=== PATIENT | female | born 1955 | race Caucasian/White ===

== ENCOUNTER 2017-01-21 09:22 | Outpatient (CLI) | payer BC ==
[~2017-01-21 09:22] MED LIST: 5-HTP100 MG ORAL; ADDERAL20 MG ORAL; BENADRYL25 M3 PO; BIOTIN5 MG PO; CALCIUM500 M3 PO; CELEXA20 MG ORAL; MELATONIN5 M5 ORAL; METHADONE HCL5 MG PO; OMEGA-31000 M1 PO; PROVENTIL2 MG ORAL; PROZAC10 MG ORAL; SPIRIVA18 MCG INH; TOPAMAX25 MG ORAL; ZESTRIL10 M1 ORAL; magnesium PO; vit d PO
--- NOTE | 2017-01-21 10:15 | GI Progress Note ---
Assessment/Plan Problems: (1) Colon polyp ICD Codes: K63.5 - Colon polyp SNOMED: 89411895 (2) HTN (hypertension) ICD Codes: I10 - HTN (hypertension) SNOMED: 70738240 (3) Internal hemorrhoids ICD Codes: K64.8 - Internal hemorrhoids SNOMED: 81099820 Status: stable Status Narrative Seen with Dr. Hopkins. Assessment/Plan Endoscopy Procedure Note Indication for Procedure: screening Procedures Performed: colonoscopy Operative Findings/Diagnosis: 5 polyps ORTEGA HOPKINS - Jun 15, 2014 10:22 colonoscopy to be scheduled pending prior authorization - CLD and prep instructions given and acknowledge by patient. RTC prn Subjective Gastrointestinal/Abdominal: Reports: no symptoms Objective T 98.9 BP 128/78 P 72 96 RA WT 184 denies weight loss General Appearance: no apparent distress, alert Cardiovascular: normal rate Respiratory/Chest: normal breath sounds, no respiratory distress Abdominal Exam: normal bowel sounds, non tender, soft Extremities: normal range of motion Thi King N.P. Jan 21, 2017 10:15
== END 2017-01-21 10:00 | disposition home or self-care (01) ==
LOC: PAN 09:22
DX: K63.5 Polyp of colon (principal); I10 Essential (primary) hypertension; K64.8 Other hemorrhoids
CPT/HCPCS: 99211

== ENCOUNTER 2017-04-30 06:40 | Day surgery (SDC) | payer BC ==
[2017-04-30] VITALS (10 sets, daily range): BP systolic 121–135; BP diastolic 65–80
[~2017-04-30] VITALS: Ht 175.3 cm; Wt 86.6 kg
--- NOTE | 2017-04-30 07:28 | Anethesia Preoperative Eval ---
Anesthesia Pre-op PMH/ROS General Date of Evaluation: Apr 30, 2017 Time of Evaluation: 07:26 Anesthesiologist: aaron ASA Score: ASA 3 Mallampati Score Class I : Soft palate, uvula, fauces, pillars visible Class II: Soft palate, uvula, fauces visible Class III: Soft palate, base of uvula visible Class IV: Only hard plate visible Mallampati Classification: Class II Surgeon: matt Diagnosis: colon polyps, anemia Surgical Procedure: colonoscopy Anesthesia History: none Social History: smoking - former smoker Family History: no anesthesia problems Allergies: Coded Allergies: ADHESIVE TAPE (Verified Allergy, Intermediate, 04/30/17) raw skin PENICILLINS (Unverified Allergy, Intermediate, Hives, 05/10/14) SWOLLEN Medications: see eMAR Past Medical History Cardiovascular: Reports: HTN Gastrointestinal/Genitourinary: Reports: other - hemorrhoids,colon polyps, Neurologic/Psychiatric: Reports: depression/anxiety Hematology/Immune: Reports: anemia Musculoskeletal/Integumentary: Reports: other - back pain Other: obesity Anesthesia Pre-op Phys. Exam Physician Exam Last Vital Signs Date Time Temp Pulse Resp B/P (MAP) Pulse Ox O2 Delivery O2 Flow Rate FiO2 04/30/17 07:26 97.1 64 17 124/65 96 Room Air Constitutional: NAD Neurologic: CN 2-12 intact Cardiovascular: RRR Respiratory: CTA Gastrointestinal: S/NT/ND Airway Exam Mallampati Score: Class II MO: full Neck: supple TMD: 2fb ROM: full Teeth: intact Anesthesia Pre-op A/P Studies Pre-op Studies: EKG - sinus bradycardia Risk Assessment & Plan Assessment: asa3 Plan: mac Status Change Before Surgery: No Pre-Antibiotics Drug: CELENA Fuentes Apr 30, 2017 07:28
[2017-04-30] MEDS ORDERED: BUSPAR10 MG ORAL (07:30)
[2017-04-30] MEDS ORDERED: Lidocaine 1% MPF 10mg/ml 5ml ONE (08:30)
[2017-04-30] MEDS ORDERED: Propofol 200mg/20ml IV ONE (08:30)
[2017-04-30] MEDS ORDERED: fentaNYL 100 mcg/2 mL IV PRN (08:45)
[2017-04-30] MEDS ORDERED: Midazolam 2mg/2ml Inj IVP PRN (08:45)
[2017-04-30] MEDS ORDERED: DiphenhydrAMINE 50mg/ml Inj IVP PRN (08:45)
[2017-04-30] MEDS ORDERED: Atropine Inj 1mg/10ml Syr IV PRN (08:45)
--- NOTE | 2017-04-30 08:52 | Short Stay Surgery H&P ---
History of Present Illness History of Present Illness Chief Complaint screening colonoscopy HPI Yvonne Riley is a 61 year old female who was admitted on for Colon Polyps Patient History Allergies: Coded Allergies: ADHESIVE TAPE (Verified Allergy, Intermediate, 04/30/17) raw skin PENICILLINS (Unverified Allergy, Intermediate, Hives, 05/10/14) SWOLLEN PAST MEDICAL HISTORY: (1) Depression (2) External hemorrhoid (3) Colon polyp (4) HTN (hypertension) (5) Internal hemorrhoids Past Surgeries: Social History: Medication History Scheduled Buspirone Hcl* (Buspar*), 15 MG ORAL THREE TIMES A DAY, (Reported) Diphenhydramine HCl (Benadryl), 25 MG PO PRN, (Reported) Fluoxetine Hcl* (Prozac*), 10 MG ORAL DAILY, (Reported) Lisinopril* (Zestril*), 10 MG ORAL DAILY, (Reported) Discontinued Medications Melatonin (Melatonin), 5 MG ORAL BEDTIME PRN for Insomnia, (Reported) Discontinued Reason: Pt stopped taking med Review of Systems Cardiovascular: Reports: no symptoms Respiratory: Reports: no symptoms Skeletal: Reports: no symptoms Gastrointestinal: Reports: no symptoms Genitourinary: Reports: no symptoms Neurologic: Reports: no symptoms Endocrine: Reports: no symptoms Hematologic: Reports: no symptoms Physical Exam Vital Signs Last Vital Signs Date Time Temp Pulse Resp B/P (MAP) Pulse Ox O2 Delivery O2 Flow Rate FiO2 04/30/17 07:26 97.1 64 17 124/65 96 Room Air Skin: normal HENT: normal Heart: normal Lungs: normal Abdomen: normal Extremities: normal Plan Plan of Care colonoscopy Final Diagnosis: Attestation Are the patient's medical conditions optimized for surgery? Attestation Response: yes ORTEGA ROGERS Apr 30, 2017 08:52
--- NOTE | 2017-04-30 08:53 | Pre-Procedure Note/Attestation ---
Pre-Procedure Note/Attestation Complete Prior to Procedure Planned Procedure: not applicable Procedure Narrative: colonoscopy Indications for Procedure Pre-Operative Diagnosis: screening Attestation I attest that I discussed the nature of the procedure; its benefits; risks and complications; and alternatives (and the risks and benefits of such alternatives ), prior to the procedure, with the patient (or the patient's legal outbound telemarketing representative). I attest that, if there was a reasonable possibility of needing a blood transfusion, the patient (or the patient's legal outbound telemarketing representative) was given the [facility] standardized written summary, pursuant to the [place] Blood Safety Act ([place] Health and Safety Code # 1645, as amended). I attest that I re-evaluated the patient just prior to the surgery and that there has been no change in the patient's H&P, except as documented below: ORTEGA ROGERS Apr 30, 2017 08:53
--- NOTE | 2017-04-30 09:16 | Endoscopy Procedure Note ---
Endoscopy Procedure Note Indication for Procedure: screening Procedures Performed: colonoscopy Operative Findings/Diagnosis: multiple polyps Specimen: yes Pt Tolerated Procedure Well: Yes Estimated Blood Loss: none Anesthesiologist: latonya Anesthesia: MAC Implant(s) used?: No 50 yrs or older w/o bx or poly: No 10yrs. F/U not recommended: Yes If not recommended, why?: Above average risk 10 yrs. F/U needed: Yes 18 years or older w/prev. colo: Yes <3yrs. since last colonoscopy: No ORTEGA ROGERS Apr 30, 2017 09:16
--- NOTE | 2017-04-30 14:32 | Immediate Post-Op Evaluation ---
Immediate Post-Op Evalulation Immediate Post-Op Evalulation Procedure: colonoscopy Date of Evaluation: Apr 30, 2017 Time of Evaluation: 09:39 IV Fluids: 300ml lr Blood Products: none Estimated Blood Loss: negligible Blood Pressure Systolic: 133 Blood Pressure Diastolic: 78 Pulse Rate: 66 Respiratory Rate: 18 O2 Sat by Pulse Oximetry: 100 Temperature (Fahrenheit): 97.3 Pain Score (1-10): 0 Nausea: No Vomiting: No Complications none Patient Status: awake, reacts, patent Hydration Status: adequate Drug: CELENA Fuentes Apr 30, 2017 14:32
--- NOTE | 2017-04-30 14:34 | 48 Hour Post Anesthesia Eval ---
Post Anesthesia Evaluation Procedure: colonoscopy Date of Evaluation: Apr 30, 2017 Time of Evaluation: 09:41 Blood Pressure Systolic: 135 0: 80 Pulse Rate: 74 Respiratory Rate: 18 Temperature (Fahrenheit): 97.3 O2 Sat by Pulse Oximetry: 100 Airway: patent Nausea: No Vomiting: No Pain Intensity: 0 Hydration Status: adequate Cardiopulmonary Status: stable Mental Status/LOC: patient returned to baseline Post-Anesthesia Complications: none Follow-up care needed: N/A CELENA SIMON Apr 30, 2017 14:34
--- NOTE | 2017-04-30 14:45 | Procedure Note ---
DATE OF PROCEDURE: 04/30/2017 SURGEON: Low Hopkins M.D. PROCEDURE: Colonoscopy with biopsy. ANESTHESIOLOGIST: Arlene Chisholm M.D. INSTRUMENT: Olympus adult flexible colonoscope. INDICATION: History of colonic polyps, screening colonoscopy. REASON FOR PROCEDURE: The procedure, risks, benefits, and possible consequences, including hemorrhage, aspiration, perforation and infection, and alternative treatments, were explained to the patient/legal guardian by Dr. Low Hopkins and the patient/legal guardian understood and accepted these risks. DESCRIPTION OF PROCEDURE: After informed consent was obtained and the patient was adequately sedated, first rectal exam was performed, which was positive for external and internal hemorrhoids. Then, the scope was advanced from rectum into the cecum documented by appendiceal orifice, ileocecal valve, and right upper quadrant palpation. Quality of prep was very good. The patient had numerous polyps in the rectosigmoid area, I would say more than 20 of them. We biopsied about 7 or 8 of them, they were all hyperplastic looking polyps. The rest of the examination grossly within normal limit. Retroflexion of rectum showed evidence of internal hemorrhoids. SUMMARY OF FINDINGS: 1. Internal and external hemorrhoids. 2. Numerous hyperplastic looking polyps in the rectosigmoid area. PLAN: Given the criteria for serrated adenoma syndrome, given the patient has more than 20 hyperplastic looking polyps, the patient qualifies for that. Recommend repeat colonoscopy in one year. Low Hopkins M.D. DR: RODNEY JOB#: [id number] CC:
--- NOTE | 2017-05-09 11:38 | Cardiology Report ---
APPROVED REPORT EKG Measurement Heart [id number] [id number] Sinus bradycardia Otherwise normal ECG
== END 2017-04-30 10:30 | disposition home or self-care (01) ==
LOC: GAS 06:40
DX: Z12.11 Encounter for screening for malignant neoplasm of colon (principal); K64.4 Residual hemorrhoidal skin tags; K64.8 Other hemorrhoids; K63.5 Polyp of colon; F32.9 Major depressive disorder, single episode, unspecified; I10 Essential (primary) hypertension; Z88.0 Allergy status to penicillin; Z91.040 Latex allergy status; Z87.891 Personal history of nicotine dependence; R00.1 Bradycardia, unspecified
CPT/HCPCS: 45380; 93005; J2704; 94003; 94150

== ENCOUNTER 2017-05-13 09:23 | Outpatient (CLI) | payer BC ==
[~2017-05-13 09:23] MED LIST changes: +BUSPAR10 MG ORAL
[2017-05-13 09:29] VITALS: BP 131/77
--- NOTE | 2017-05-13 11:21 | GI Progress Note ---
Assessment/Plan Problems: (1) Colon polyp ICD Codes: K63.5 - Colon polyp SNOMED: 46035676 (2) External hemorrhoid ICD Codes: K64.8 - External hemorrhoid SNOMED: 48115680 (3) Internal hemorrhoids ICD Codes: K64.8 - Internal hemorrhoids SNOMED: 17006867 Status: stable Status Narrative Seen with Dr. Hopkins. Assessment/Plan colonoscopy SUMMARY OF FINDINGS reviewed with patient: 1. Internal and external hemorrhoids. 2. Numerous hyperplastic looking polyps in the rectosigmoid area. PLAN: Given the criteria for serrated adenoma syndrome, given the patient has more than 20 hyperplastic looking polyps, recommend repeat colonoscopy in one year. RTC PRN Subjective Gastrointestinal/Abdominal: Reports: no symptoms Objective Last 24 Hour Vital Signs Date Time Temp Pulse Resp B/P (MAP) Pulse Ox O2 Delivery O2 Flow Rate FiO2 05/13/17 09:29 91 16 131/77 98 General Appearance: WD/WN, no apparent distress, alert Cardiovascular: normal rate Respiratory/Chest: normal breath sounds, no respiratory distress Abdominal Exam: normal bowel sounds, non tender, soft Extremities: normal range of motion, non-tender Thi King N.P. May 13, 2017 11:21
== END 2017-05-13 09:58 | disposition home or self-care (01) ==
LOC: PAN 09:23
DX: K63.5 Polyp of colon (principal); K64.8 Other hemorrhoids
CPT/HCPCS: 99212

== ENCOUNTER 2018-09-30 05:46 | Day surgery (SDC) | payer BC ==
[2018-09-30] VITALS (8 sets, daily range): BP systolic 100–129; BP diastolic 63–77
[~2018-09-30] VITALS: Ht 171.4 cm; Wt 80.3 kg
[2018-09-30] MEDS ORDERED: LR 1000ml 1,000 ML IVLG SCH (07:18)
--- NOTE | 2018-09-30 07:18 | Anethesia Preoperative Eval ---
Anesthesia Pre-op PMH/ROS General Date of Evaluation: September 30, 2018 Anesthesiologist: Rajesh ASA Score: ASA 2 Mallampati Score Class I : Soft palate, uvula, fauces, pillars visible Class II: Soft palate, uvula, fauces visible Class III: Soft palate, base of uvula visible Class IV: Only hard plate visible Mallampati Classification: Class II Surgeon: Kellie Diagnosis: Colon polyps Surgical Procedure: Colonoscopy Anesthesia History: none Social History: smoking - ex smoker Family History: no anesthesia problems Allergies: Coded Allergies: ADHESIVE TAPE (Verified Allergy, Intermediate, 04/30/17) raw skin PENICILLINS (Unverified Allergy, Intermediate, Hives, 09/30/18) SWOLLEN Medications: see eMAR Patient NPO?: Yes NPO Date: Sep 29, 2018 NPO Time: 22:00 Past Medical History Cardiovascular: Reports: HTN; Denies: CAD, [place], valve dz, arrhythmia, other Pulmonary: Denies: asthma, COPD, RAFAEL, other Gastrointestinal/Genitourinary: Denies: GERD, CRI, ESRD, other Neurologic/Psychiatric: Reports: depression/anxiety; Denies: dementia, CVA, TIA, other Endocrine: Denies: DM, hypothyroidism, steroids, other HEENT: Denies: cataract (L), cataract (R), glaucoma, TE-MOAK (L), TE-MOAK (R), other Hematology/Immune: Reports: anemia - chronic; Denies: DVT, bleeding disorder, other Musculoskeletal/Integumentary: Denies: OA, RA, DJD, DDD, edema, other Other: obesity PSxH Narrative: Denies Anesthesia Pre-op Phys. Exam Physician Exam Last Vital Signs Date Time Temp Pulse Resp B/P (MAP) Pulse Ox O2 Delivery O2 Flow Rate FiO2 09/30/18 06:25 97.1 76 18 109/71 95 Room Air Constitutional: NAD Cardiovascular: RRR Respiratory: CTA Airway Exam Mallampati Score: Class II MO: full ROM: full Anesthesia Pre-op A/P Labs see chart Studies Pre-op Studies: EKG - sr Risk Assessment & Plan Assessment: ASA II Plan: MAC Status Change Before Surgery: No Pre-Antibiotics Drug: N/A Lamar Lan MD September 30, 2018 07:18
[2018-09-30] MEDS ORDERED: DiphenhydrAMINE 50mg/ml Inj IVP PRN (07:30)
[2018-09-30] MEDS ORDERED: Lidocaine 1% MPF 10mg/ml 5ml ONE (08:00)
[2018-09-30] MEDS ORDERED: Propofol 200mg/20ml IV ONE (08:00)
[2018-09-30] MEDS ORDERED: LR 1000ml ONE (08:00)
--- NOTE | 2018-09-30 08:00 | Short Stay Surgery H&P ---
History of Present Illness History of Present Illness Chief Complaint see recent office note HPI Yvonne Riley is a 62 year old female who was admitted on for Polyps, Abdominal Pain Patient History Allergies: Coded Allergies: ADHESIVE TAPE (Verified Allergy, Intermediate, 04/30/17) raw skin PENICILLINS (Unverified Allergy, Intermediate, Hives, 09/30/18) SWOLLEN Medication History Scheduled Buspirone Hcl* (Buspar*), 15 MG ORAL THREE TIMES A DAY, (Reported) Diphenhydramine HCl (Benadryl), 25 MG PO PRN, (Reported) Fluoxetine Hcl* (Prozac*), 15 MG ORAL DAILY, (Reported) Lisinopril* (Zestril*), 10 MG ORAL DAILY, (Reported) Physical Exam Vital Signs Last Vital Signs Date Time Temp Pulse Resp B/P (MAP) Pulse Ox O2 Delivery O2 Flow Rate FiO2 09/30/18 06:25 97.1 76 18 109/71 95 Room Air Plan Attestation Are the patient's medical conditions optimized for surgery? Low Hopkins MD September 30, 2018 08:00
--- NOTE | 2018-09-30 08:00 | Pre-Procedure Note/Attestation ---
Pre-Procedure Note/Attestation Complete Prior to Procedure Planned Procedure: not applicable Procedure Narrative: colonoscopy Indications for Procedure Pre-Operative Diagnosis: screening Attestation I attest that I discussed the nature of the procedure; its benefits; risks and complications; and alternatives (and the risks and benefits of such alternatives ), prior to the procedure, with the patient (or the patient's legal investment representative). I attest that, if there was a reasonable possibility of needing a blood transfusion, the patient (or the patient's legal investment representative) was given the [facility] standardized written summary, pursuant to the [place] Blood Safety Act ([place] Health and Safety Code # 1645, as amended). I attest that I re-evaluated the patient just prior to the surgery and that there has been no change in the patient's H&P, except as documented below: Low Hopkins MD September 30, 2018 08:00
--- NOTE | 2018-09-30 08:01 | Short Stay Surgery H&P ---
History of Present Illness History of Present Illness Chief Complaint h/o colon polyps HPI Yvonne Riley is a 62 year old female who was admitted on for Polyps, Abdominal Pain Patient History Allergies: Coded Allergies: ADHESIVE TAPE (Verified Allergy, Intermediate, 04/30/17) raw skin PENICILLINS (Unverified Allergy, Intermediate, Hives, 09/30/18) SWOLLEN PAST MEDICAL HISTORY: (1) Depression (2) HTN (hypertension) (3) Internal hemorrhoids (4) Colon polyp (5) External hemorrhoid Medication History Scheduled Buspirone Hcl* (Buspar*), 15 MG ORAL THREE TIMES A DAY, (Reported) Diphenhydramine HCl (Benadryl), 25 MG PO PRN, (Reported) Fluoxetine Hcl* (Prozac*), 15 MG ORAL DAILY, (Reported) Lisinopril* (Zestril*), 10 MG ORAL DAILY, (Reported) Review of Systems Cardiovascular: Reports: no symptoms Respiratory: Reports: no symptoms Skeletal: Reports: no symptoms Gastrointestinal: Reports: no symptoms Genitourinary: Reports: no symptoms Neurologic: Reports: no symptoms Endocrine: Reports: no symptoms Hematologic: Reports: no symptoms Physical Exam Vital Signs Last Vital Signs Date Time Temp Pulse Resp B/P (MAP) Pulse Ox O2 Delivery O2 Flow Rate FiO2 09/30/18 06:25 97.1 76 18 109/71 95 Room Air Skin: normal HENT: normal Heart: normal Lungs: normal Abdomen: normal Extremities: normal Plan Plan of Care colonoscopy Attestation Are the patient's medical conditions optimized for surgery? Attestation Response: yes Low Hopkins MD September 30, 2018 08:01
--- NOTE | 2018-09-30 08:25 | Endoscopy Procedure Note ---
Endoscopy Procedure Note General Indication for Procedure: colon polyps Procedures Performed: colonoscopy Operative Findings/Diagnosis: 8 polyps Specimen: yes Pt Tolerated Procedure Well: Yes Estimated Blood Loss: none Anesthesia Anesthesiologist: brad Anesthesia: MAC Inserted Devices Implant(s) used?: No Quality Quality of Bowel Preparation: Good Did scope reach the cecum?: Yes Was there any complications?: No GI Core Measures 50 yrs or older w/o bx or poly: No 10yrs. F/U not recommended: Yes If not recommended, why?: Above average risk 10 yrs. F/U needed: Yes 18 years or older w/prev. colo: Yes <3yrs. since last colonoscopy: Yes Med reason:<3 yrs.: Found >10 Adenomas Low Hopkins MD September 30, 2018 08:25
--- NOTE | 2018-09-30 08:32 | Immediate Post-Op Evaluation ---
Immediate Post-Op Evalulation Immediate Post-Op Evalulation Procedure: colonoscopy Date of Evaluation: September 30, 2018 Time of Evaluation: 08:34 IV Fluids: 500 Blood Products: 0 Estimated Blood Loss: 0 Urinary Output: 0 Blood Pressure Systolic: 108 Blood Pressure Diastolic: 68 Pulse Rate: 82 Respiratory Rate: 16 O2 Sat by Pulse Oximetry: 100 Temperature (Fahrenheit): 97.3 Pain Score (1-10): 0 Nausea: No Vomiting: No Complications 0 Patient Status: awake, reacts, patent, none Hydration Status: adequate Drug: N/A Lamar Lan MD September 30, 2018 08:31
--- NOTE | 2018-09-30 08:33 | 48 Hour Post Anesthesia Eval ---
Post Anesthesia Evaluation Procedure: colonoscopy Date of Evaluation: September 30, 2018 Airway: patent Nausea: No Vomiting: No Pain Intensity: 0 Hydration Status: adequate Cardiopulmonary Status: at baseline Mental Status/LOC: patient returned to baseline Post-Anesthesia Complications: 0 Follow-up care needed: ready to discharge Lamar Lan MD September 30, 2018 08:33
--- NOTE | 2018-09-30 17:00 | Procedure Note ---
DATE OF PROCEDURE: 09/30/2018 SURGEON: Low Hopkins M.D. PROCEDURE: Colonoscopy with biopsy and polypectomy. ANESTHESIA: Per Dr. Mena. INSTRUMENT: Olympus adult flexible colonoscope. INDICATION: History of colonic polyps. REASON FOR PROCEDURE: The procedure, risks, benefits, and possible consequences, including hemorrhage, aspiration, perforation and infection, and alternative treatments, were explained to the patient/legal guardian by Dr. Low Hopkins and the patient/legal guardian understood and accepted these risks. DESCRIPTION OF PROCEDURE: After informed consent was obtained and the patient was adequately sedated, first rectal exam was performed, which was positive for external and internal hemorrhoids. Then, the scope was advanced into the rectum into the cecum documented by appendix orifice, ileocecal valve, and right upper quadrant palpation. Quality of prep was good. The patient had total of 8 polyps, 8 in the sigmoid and 8 in the rectosigmoid area. They were all very small and hyperplastic looking. The largest one was measured about 5 mm, that one was removed with the cold snare polypectomy technique. The rest of the polyps were removed with the cold biopsy forceps technique. Retroflexion of scope showed evidence of medium-sized internal hemorrhoids. SUMMARY OF FINDINGS: 1. Eight colonic polyps removed, see above for details. 2. Internal and external hemorrhoids. RECOMMENDATIONS: 1. Follow path. 2. We will recommend repeat colonoscopy in 2 years. Low Hopkins M.D. DR: KIKO JOB#: [id number] CC:
--- NOTE | 2018-10-01 17:45 | Cardiology Report ---
APPROVED REPORT EKG Measurement Heart [id number] 136P78 [id number] Normal sinus rhythm Normal ECG
== END 2018-09-30 09:40 | disposition home or self-care (01) ==
LOC: GAS 05:46
DX: K63.5 Polyp of colon (principal); K64.4 Residual hemorrhoidal skin tags; K64.8 Other hemorrhoids; F32.9 Major depressive disorder, single episode, unspecified; I10 Essential (primary) hypertension; Z79.899 Other long term (current) drug therapy; Z88.0 Allergy status to penicillin; Z91.040 Latex allergy status; R10.9 Unspecified abdominal pain; F41.9 Anxiety disorder, unspecified
CPT/HCPCS: 45380; 93005; J2704; 94003; 94150